=== PATIENT | female | born 2000 | race African-American/Black ===

== ENCOUNTER 2020-01-17 17:25 | Emergency (ER) | payer MEDICAID ==
[~2020-01-17] VITALS: Ht 170.2 cm; Wt 60.0 kg
[2020-01-17] MEDS ORDERED: SODIUM CHLORIDE 0.9% 1,000 ML IV ONE (22:30)
[2020-01-18 00:54] VITALS: BP 124/62
== END 2020-01-18 01:34 | disposition home or self-care (01) ==
LOC: ER 17:25
DX: R55 Syncope and collapse (principal)
CPT/HCPCS: 93005; 96360; 99283; J7030

== ENCOUNTER 2023-01-04 15:13 | Observation (INO) | payer OTHER ==
[~2023-01-04] VITALS: Ht 162.6 cm; Wt 108.9 kg
[2023-01-04] MEDS ORDERED: LACTATED RINGERS 1,000 ML IV SCH (16:30)
[2023-01-04 17:14] LABS: BASOPHILS % 0.6 % (0.0-2.0); EOSINOPHILS % 0.9 % (0.0-5.0); HEMATOCRIT. 30.1 % (36.0-48.0); HEMOGLOBIN. 8.9 g/dL (12.0-16.0); LYMPHOCYTES % 13.2 % (20.0-50.0); MEAN CORPUSCULAR HEMOGLOBIN 18.8 pg (28.0-32.0); MEAN CORPUSCULAR VOLUME 63.8 fL (81.0-99.0); MEAN PLATELET VOLUME 9.1 fl (7.4-10.4); MONOCYTES % 6.5 % (2.0-8.0); NEUTROPHILS % 78.8 % (40.0-76.0); PLATELET 214 x1000/uL (130-400); RED BLOOD CELL COUNT 4.72 mill/uL (4.2-5.4); RED CELL DISTRIBUTION WIDTH 21.8 % (11.6-14.6)
[2023-01-04 17:28] LABS: CLARITY URINE CLEAR (CLEAR); COLOR URINE YELLOW (YELLOW); KETONES URINE NEGATIVE (NEGATIVE); LEUKOCYTE ESTERASE URINE NEGATIVE (NEGATIVE); NITRITE URINE NEGATIVE (NEGATIVE); OCCULT BLOOD URINE NEGATIVE (NEGATIVE); PROTEIN URINE TRACE (NEGATIVE); SPECIFIC GRAVITY URINE 1.026 (1.005-1.030)
[2023-01-04 17:56] LABS: PLATELET ESTIMATE NORMAL
[2023-01-04 18:58] LABS: CHLORIDE 107 mEq/L (98-107)
[2023-01-04] MEDS: CEFAZOLIN 2,000 MG in DEXT 5% WATER 100 ML IV SCH (19:26)
[2023-01-04] MEDS ORDERED: PREN-176 PO (20:34)
[2023-01-04] MEDS ORDERED: FERR-71 PO (20:34)
== END 2023-01-04 21:00 | disposition home or self-care (01) ==
LOC: 8 EST LDRP 15:13
PROVIDERS: ADMIT Obstetrics & Gynecology; ATTEND Obstetrics & Gynecology
DX: O26.893 Other specified pregnancy related conditions, third trimester (principal); R19.7 Diarrhea, unspecified; Z3A.31 31 weeks gestation of pregnancy
CPT/HCPCS: 36415; 59025; 76805; 76818; 80053; 81003; 85025; G0378; J0690; J7060; J7120